=== PATIENT | male | born 1950 | race Hispanic/Latino ===

== ENCOUNTER 2016-10-23 08:56 | Outpatient (CLI) | payer MEDICARE ==
[2016-10-23 13:04] LABS: ALT (SGPT) 256 U/L (0-55); AST (SGOT) 132 U/L (5-34); Alkaline Phosphatase 199 U/L (40-150); Anion Gap 15 mmol/L (10-20); BUN (Urea Nitrogen) 21 mg/dL (8.4-25.7); Bilirubin, Total 0.9 mg/dL (0.2-1.2); Calc. Creatinine Clearance 0 mL/min (70-130); Calcium 9.8 mg/dL (7.8-10.44); Carbon Dioxide 24 mmol/L (23-31); Chloride 104 mmol/L (98-107); Estimated GFR-MDRD 71; Globulin 3.4 g/dL (2.4-3.5); LDL Cholesterol, Calculated 39 mg/dL; Protein, Total 7.9 g/dL (5.8-8.1)
[2016-10-23 13:44] LABS: Blood, Urine Negative (Negative); Glucose, Urine (Dipstick) Negative (Negative); Ketone, Urine Trace mg/dL (Negative); Nitrite Negative (Negative); Protein, Urine (Dipstick) 30 mg/dL (Neg-Trace); Urobilinogen 0.2 mg/dL (0.2-1.0)
[2016-10-23 13:50] LABS: Bilirubin Negative (Negative)
[2016-10-23 14:10] LABS: RBC/HPF None Seen HPF (0-3)
[2016-10-23 14:11] LABS: Bacteria/HPF 1+ HPF (None Seen); Squamous Epithelial None Seen HPF (0-3); WBC/HPF None Seen HPF (0-3)
[2016-10-23 14:27] LABS: #Basophils 0.1 thou/uL (0.0-0.2); #Eosinphils 0.3 thou/uL (0.0-0.7); #Lymphocytes 2.5 thou/uL (1.20-3.40); #Monocytes 0.7 thou/uL (0.11-0.59); #Neutrophils 4.6 thou/uL (1.40-6.50); %Basophils 1.3 % (0.0-1.0); %Eosinophils 3.6 % (0.0-10.0); %Lymphocytes 30.4 % (21.0-51.0); Red Blood Cell (RBC) Count 5.42 mill/uL (4.70-6.10); White Blood Cell (WBC) Count 8.2 thou/uL (4.8-10.8)
[2016-10-23 14:59] LABS: Hemoglobin A1c 5.9 % (4.0-6.0)
== END 2016-10-23 08:57 ==
LOC: NAVSJIPCSP 08:56
PROVIDERS: ATTEND Internal Medicine
DX: E78.5 Hyperlipidemia, unspecified (principal); E11.9 Type 2 diabetes mellitus without complications; I10 Essential (primary) hypertension; Z95.1 Presence of aortocoronary bypass graft
CPT/HCPCS: 36415; 80053; 80061; 81003; 81015; 83036; 84443; 85025

== ENCOUNTER 2016-10-30 09:47 | Outpatient (CLI) | payer MEDICARE ==
[2016-10-30 12:47] LABS: ALT (SGPT) 43 U/L (0-55); AST (SGOT) 22 U/L (5-34); Alkaline Phosphatase 89 U/L (40-150); Bilirubin, Direct 0.2 mg/dL (0.1-0.3); Bilirubin, Total 0.5 mg/dL (0.2-1.2); LDL Cholesterol, Calculated 26 mg/dL; Protein, Total 7.4 g/dL (5.8-8.1)
== END 2016-10-30 09:48 | disposition home or self-care (01) ==
LOC: NAVSJIPCSP 09:47
PROVIDERS: ATTEND Internal Medicine
DX: E78.5 Hyperlipidemia, unspecified (principal); M10.9 Gout, unspecified; I10 Essential (primary) hypertension; E11.9 Type 2 diabetes mellitus without complications; K75.9 Inflammatory liver disease, unspecified; Z95.1 Presence of aortocoronary bypass graft
CPT/HCPCS: 36415; 80061; 80074; 80076; 84550

== ENCOUNTER 2017-03-24 08:15 | Outpatient (CLI) | payer MEDICARE ==
[2017-03-24 13:49] LABS: Anion Gap 14 mmol/L (10-20); BUN (Urea Nitrogen) 16 mg/dL (8.4-25.7); Calc. Creatinine Clearance 0 mL/min (70-130); Calcium 9.4 mg/dL (7.8-10.44); Carbon Dioxide 27 mmol/L (23-31); Cardiac Risk 3.2 (Less than 4.5); Chloride 102 mmol/L (98-107); Cholesterol 156 mg/dl (< 200 Desired); Estimated GFR-MDRD 82; Glucose 119 mg/dL (80-115); HDL Cholesterol 49 mg/dL (>60 Neg Risk); LDL Cholesterol, Calculated 61 mg/dL; Potassium 5.1 mmol/L (3.5-5.1); Sodium 138 mmol/L (136-145); Triglycerides 228 mg/dL (Less than 150)
[2017-03-24 15:02] LABS: Hemoglobin A1c 5.7 % (4.0-6.0)
== END 2017-03-24 08:16 | disposition home or self-care (01) ==
LOC: NAVSJIPCSP 08:15
PROVIDERS: ATTEND Internal Medicine
DX: Z51.81 Encounter for therapeutic drug level monitoring (principal); Z79.899 Other long term (current) drug therapy
CPT/HCPCS: 36415; 80048; 80061; 83036

== ENCOUNTER 2017-03-31 14:27 | Outpatient (CLI) | payer MEDICARE ==
--- NOTE | 2017-03-31 18:12 | RAD ---
LEFT SHOULDER 3 VIEWS: Date: 03/31/17 INDICATION: Left shoulder pain. 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 No fracture or dislocation. IMPRESSION: No acute osseous abnormality of the left shoulder. POS: [facility]I
== END 2017-03-31 14:28 | disposition home or self-care (01) ==
LOC: NAV RAD 14:27
PROVIDERS: ATTEND Internal Medicine
DX: M25.512 Pain in left shoulder (principal)

== ENCOUNTER 2017-06-30 08:45 | Outpatient (CLI) | payer MEDICARE ==
[2017-06-30 13:07] LABS: ALT (SGPT) 18 U/L (8-55); AST (SGOT) 16 U/L (5-34); Albumin 4.1 g/dL (3.4-4.8); Alkaline Phosphatase 63 U/L (40-150); Bilirubin, Direct 0.3 mg/dL (0.1-0.3); Bilirubin, Total 0.6 mg/dL (0.2-1.2); Cardiac Risk 1.9 (Less than 4.5); Cholesterol 87 mg/dl (< 200 Desired); HDL Cholesterol 45 mg/dL (>60 Neg Risk); LDL Cholesterol, Calculated 27 mg/dL; Protein, Total 7.4 g/dL (5.8-8.1); Triglycerides 73 mg/dL (Less than 150)
== END 2017-06-30 08:46 | disposition home or self-care (01) ==
LOC: NAVSJIPCSP 08:45
PROVIDERS: ATTEND Internal Medicine
DX: E78.5 Hyperlipidemia, unspecified (principal); M25.512 Pain in left shoulder
CPT/HCPCS: 36415; 80061; 80076

== ENCOUNTER 2022-11-21 12:00 | Emergency (ER) | payer MEDICARE, OTHER | END 2022-11-21 12:40 | disposition home or self-care (01) | LOC: NAV ERS 12:00 | DX: H66.91 Otitis media, unspecified, right ear (principal); I25.10 Atherosclerotic heart disease of native coronary artery without angina pectoris; K21.9 Gastro-esophageal reflux disease without esophagitis; E78.00 Pure hypercholesterolemia, unspecified; I10 Essential (primary) hypertension; M10.9 Gout, unspecified; M19.90 Unspecified osteoarthritis, unspecified site; E11.42 Type 2 diabetes mellitus with diabetic polyneuropathy; Z87.891 Personal history of nicotine dependence | CPT/HCPCS: 99282 ==

== ENCOUNTER 2024-10-11 09:16 | Emergency (ER) | payer OTHER | END 2024-10-11 10:18 | disposition home or self-care (01) | LOC: NAV ERS 09:16 | DX: B34.9 Viral infection, unspecified (principal); H65.92 Unspecified nonsuppurative otitis media, left ear; I25.10 Atherosclerotic heart disease of native coronary artery without angina pectoris; E11.9 Type 2 diabetes mellitus without complications; I10 Essential (primary) hypertension; E78.00 Pure hypercholesterolemia, unspecified; Z79.82 Long term (current) use of aspirin; Z79.84 Long term (current) use of oral hypoglycemic drugs; Z79.899 Other long term (current) drug therapy | CPT/HCPCS: 87400; 87426; 99283 ==